=== PATIENT | female | born 1980 | race Caucasian/White ===

== ENCOUNTER 2016-09-28 05:41 | Day surgery (SDC) | payer OTHER ==
[~2016-09-28] VITALS: Ht 160 cm; Wt 64.5 kg
[~2016-09-28 05:41] MED LIST: IBUPROFEN800 MG PO; KEFLEX500 MG PO; MAGIC MOUTHWASH1 ML MM; MOTRIN600 MG PO; MOTRIN800 MG PO; MULTI VITAMIN1 EACH PO; TYLENOL EXTRA500 MG PO
[2016-09-28 06:30] VITALS: BP 128/80
[2016-09-28 12:45] VITALS: BP 118/70
[2016-09-28 15:45] VITALS: BP 114/58
[2016-09-28 15:49] LABS: HEMATOCRIT 37.7 % (36.0-46.0); MCV 93.3 FL (83-99)
[2016-09-28 19:04] VITALS: BP 101/58
[2016-09-28 23:36] VITALS: BP 104/54
[2016-09-29 03:15] VITALS: BP 104/57
[2016-09-29 07:47] VITALS: BP 126/59
[2016-09-29 08:13] LABS: HEMATOCRIT 32.6 % (36.0-46.0); MCH 31.2 PG (29.0-34.0); MCHC 33.1 G/DL (30.0-36.0); MCV 94.2 FL (83-99); MEAN PLAT.VOLUME 11.4 uM^3 (9.5-12.4); PLATELET COUNT 193 K/uL (156-360); RBC DIS.WIDTH-CV 12.1 % (11.8-14.6); RBC DIS.WIDTH-SD 42.2 % (39-53); RED BLOOD COUNT 3.46 M/uL (3.80-5.20)
[2016-09-29 08:16] LABS: ANION GAP 9 MEQ/L (2-14); CHLORIDE 105 MEQ/L (99-109); GFR ESTIMATE (CALCULATED) > 59 mL/min/; GLUCOSE 98 mg/dL (70-99); POTASSIUM 3.8 MEQ/L (3.7-5.4); SAMPLE HEMOLYSIS CHECK 0; SAMPLE ICTERIC CHECK 0; SAMPLE LIPEMIA CHECK 0; SODIUM 139 MEQ/L (136-147); UREA NITROGEN (BUN) 6 mg/dL (9-23)
[2016-09-29 08:23] LABS: WHITE BLOOD COUNT 13.8 K/uL (4.1-10.2)
[2016-09-29] MEDS ORDERED: ENDOCET 5-3251 EACH PO (08:53)
[2016-09-29] MEDS ORDERED: MOTRIN800 MG PO (08:53)
== END 2016-09-29 11:25 | disposition home or self-care (01) ==
LOC: SDC 05:41 → 2EASTP 10:40 → 2SOUTH 10:40 → 2EASTP 12:49 → SDC 15:53 → 2EASTP 09-29 11:25
PROVIDERS: Obstetrics & Gynecology
DX: N94.6 Dysmenorrhea, unspecified (principal); N80.0 Endometriosis of uterus; N92.6 Irregular menstruation, unspecified; R10.2 Pelvic and perineal pain; R87.610 Atypical squamous cells of undetermined significance on cytologic smear of cervix (ASC-US); F17.200 Nicotine dependence, unspecified, uncomplicated; Z82.49 Family history of ischemic heart disease and other diseases of the circulatory system; Z80.49 Family history of malignant neoplasm of other genital organs; Z82.0 Family history of epilepsy and other diseases of the nervous system; Z82.3 Family history of stroke; Z80.51 Family history of malignant neoplasm of kidney; Z83.3 Family history of diabetes mellitus; Z88.6 Allergy status to analgesic agent
CPT/HCPCS: 80048; 85014; 85018; 85027; 88307; G0378; J0131; J0330; J0690; J1100; J1170; J1885; J2250; J2270; J2405; J2710; J2765; J3010; J7120; S0020